=== PATIENT | male | born 1955 | race Caucasian/White ===

== ENCOUNTER → 2016-09-25 | Outpatient (CLI) | payer MEDICARE ==
--- NOTE | 2016-09-25 09:26 | XR ---
EXAMINATION TYPE: XR KUB DATE OF EXAM: 09/25/2016 9:22 AM COMPARISON: NONE HISTORY: Pain TECHNIQUE: Single supine KUB image of the abdomen is obtained FINDINGS: Small bowel demonstrates no evidence for dilatation or air fluid levels. Gas and fecal material is seen in non-distended colon. No convincing evidence for pneumoperitoneum. No unusual calcifications. The lung bases are clear. The osseous structures are intact. IMPRESSION: 1. Overall nonobstructive bowel gas pattern.
== END | disposition home or self-care (01) ==
LOC: RADXRMAIN 09:08
PROVIDERS: ATTEND Family Medicine
DX: K59.00 Constipation, unspecified (principal)
CPT/HCPCS: 74000

== ENCOUNTER → 2016-12-25 | Outpatient (CLI) | payer MEDICARE ==
--- NOTE | 2016-12-25 09:02 | US ---
EXAMINATION TYPE: US abdomen complete DATE OF EXAM: 12/25/2016 COMPARISON: CT 2011 CLINICAL HISTORY: R10.11 RUQ Pain. Patient stated has mid and right lateral abdomen pain; prior duode nal ulcer EXAM MEASUREMENTS: Liver Length: 14.0 cm Gallbladder Wall: 0.2 cm CBD: 0.3 cm Spleen: 10.5 cm Right Kidney: 10.9 x 5.4 x 3.9 cm Left Kidney: 10.8 x 5.7 x 5.4 cm Pancreas: limitedly seen due to overlying bowel gas Liver: irregular,oval hyperechoic focus in right lobe = 3.2 x 3.5 x 5.0cm (possible focal fatty infi ltrate and may be area seen on CT 2011. Gallbladder: wnl Evidence for sonographic Noble's sign: No CBD: wnl Spleen: wnl Right Kidney: wnl Left Kidney: anechoic parapelvic elongated structures may be mild hydronephrosis vs. parapelvic cys ts noted on CT Upper IVC: wnl Abd Aorta: size is wnl, but intimal thickening is noted mid and lower aorta. IMPRESSION: 1. Probable focal fatty infiltration of the liver. 2. Parapelvic cyst left kidney.
== END | disposition home or self-care (01) ==
LOC: RADUSWWP 07:59
DX: N28.1 Cyst of kidney, acquired (principal)
CPT/HCPCS: 76700

== ENCOUNTER → 2018-07-30 | Outpatient (CLI) | payer MEDICARE ==
[2018-07-30 07:36] LABS: Blood Urea Nitrogen 13 mg/dL (9-20)
--- NOTE | 2018-07-31 12:02 | MR ---
EXAMINATION TYPE: MR liver wo/w con DATE OF EXAM: 07/30/2018 COMPARISON: Complete abdominal ultrasound December 25, 2016. Prior MRI liver September 06, 2010. Outside CT report June 08, 2018. HISTORY: Abnormal findings on diagnostic imaging, stomach pain CONTRAST: Standard multiplanar, multisequence MRI departmental protocol utilizing 7.5 mL intravenous Gadavist g adolinium contrast. FINDINGS: LIVER: Liver is overall normal in size. Corresponding to outside CT reportedly right hepatic lobe blaine p aspect there is lobulated well-circumscribed mass of T1 hypointensity and T2 hyperintensity measuri ng roughly 4.1 cm AP diameter by 5.2 cm transversely by 4.2 cm craniocaudal dimension coronal image 2 3. Dynamic postcontrast images show peripheral nodular enhancement with progressive centripetal filli ng. Imaging characteristics consistent with hemangioma. There is additional subcentimeter hemangioma seen superior to this along posterior medial aspect right hepatic lobe series 501 image 27 No signifi cant signal dropout or fatty infiltration of liver is identified. Gallbladder is felt within normal l imits. No suspicious intrahepatic or extrahepatic biliary dilatation is noted. Patency of hepatic vei ns and portal vein is noted. OTHER: Lung bases are clear. The spleen, pancreas, both adrenal glands are normal in size and appear grossly unremarkable. Note is made of more prominent cystic change centrally in the left kidney. I suspect mild/moderate le ft-sided hydronephrosis on background of parapelvic cysts. Right kidney is within normal limits. No suspicious bowel dilatation is seen. No concerning abdominal fluid collection is noted. Visualized portion of aorta is within normal limits. Visualized osseous structures are intact. IMPRESSION: 1. 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 There is however definitive increase in size from prior MRI 2010 and now size greater than 4 t o 5 cm matrix increased risk for hemorrhage, some would consider surgical resection. Advise surgical referral. 2. Possible new mild to moderate left-sided hydronephrosis on background of parapelvic cysts. Outside CT report does not describe any abnormality in left kidney. Clinical correlation advised.
== END | disposition home or self-care (01) ==
LOC: RADMRIMAIN 07:04
DX: R16.0 Hepatomegaly, not elsewhere classified (principal); R93.2 Abnormal findings on diagnostic imaging of liver and biliary tract
CPT/HCPCS: 82565; 84520; 74183; 36415; A9585

== ENCOUNTER → 2020-03-29 | Outpatient (CLI) | payer MEDICARE ==
[2020-03-29 13:53] LABS: Basophils # (A) 0.1 k/uL (0-0.2); Basophils % (A) 1 %; Eosinophils # (A) 0.2 k/uL (0-0.7); Eosinophils % (A) 3 %; HCT 41.3 % (39.0-53.0); HGB 13.7 gm/dL (13.0-17.5); Lymphocytes # (A) 2.7 k/uL (1.0-4.8); Lymphocytes % (A) 33 %; MCH 28.9 pg (25.0-35.0); MCHC 33.1 g/dL (31.0-37.0); MCV 87.3 fL (80.0-100.0); Mean Platelet Volume 6.7; Monocytes # (A) 0.5 k/uL (0-1.0); Monocytes % (A) 6 %; Neutrophils # (A) 4.6 k/uL (1.3-7.7); Neutrophils % (A) 55 %; Platelet Count 248 k/uL (150-450); RBC 4.73 m/uL (4.30-5.90); RDW 13.4 % (11.5-15.5); WBC 8.2 k/uL (3.8-10.6)
[2020-03-29 19:36] LABS: African American GFR (CKD) 108.6 (60.0-200.0); Albumin 4.2 g/dL (3.80-4.90); Albumin/Globulin Ratio 1.62 (1.60-3.17); BUN/Creat Ratio 12.5 Ratio (12.00-20.00); Calcium 9.3 mg/dL (8.7-10.3); Globulin 2.6 g/dL (1.6-3.3); Non-African American GFR(CKD) 93.7 (60.0-200.0); Potassium 4.4 mmol/L (3.5-5.5); Total Bilirubin 0.4 mg/dL (0.2-1.2); Total Protein 6.8 g/dL (6.2-8.2)
[2020-03-29 19:43] LABS: Prostate Specific Antigen 2.8 ng/mL (0.0-4.5)
== END | disposition home or self-care (01) ==
LOC: LABWHC1 12:23
PROVIDERS: ATTEND Family Medicine
DX: I10 Essential (primary) hypertension (principal); E55.9 Vitamin D deficiency, unspecified; R97.20 Elevated prostate specific antigen [PSA]
CPT/HCPCS: 36415; 80053; 82306; 84153; 84443; 85025